=== PATIENT | female | born 1970 | race Caucasian/White ===

== ENCOUNTER 2022-04-09 17:16 | Inpatient (IN) ==
[2022-04-09] MEDS ORDERED: Ipratropium/Albuterol Neb 3 ML IH PRN (20:07)
[2022-04-09] MEDS ORDERED: methylPREDNISolone 125 MG/2 ML VIAL IVP ONE (20:07)
[2022-04-09] MEDS ORDERED: Iopamidol - 370 500 ML MLS IVP ONE (20:27)
[2022-04-09 20:48] LABS: Basophils # 0.1 K/mcL (0.0-0.2); Basophils % 0.6 %; Eosinophils % 0.2 %; Hematocrit 40.4 % (35.3-44.9); Immature Granulocytes % 0.4 % (0-4); Lymphocytes # 1.8 K/mcL (0.6-4.6); Lymphocytes % 18.6 %; Mean Corpuscular HGB Conc 32.2 g/dL (31.6-35.5); Mean Corpuscular Hemoglobin 31.4 pg (28.0-33.3); Mean Corpuscular Volume 97.6 fL (83.0-100.0); Mean Platelet Volume 10.3 fL (9.4-12.4); Monocytes # 0.8 K/mcL (0.0-1.3); Monocytes % 8.1 %; Neutrophils # 6.9 K/mcL (1.6-8.9); Nucleated Red Blood Cells 0.5 /100 WBC (0); Platelet Count 220 K/mcL (140-400); Red Blood Count 4.14 M/mcL (3.82-4.97); Red Cell Distribution Width 15.6 % (11.5-14.5); Segmented Neutrophils % 72.1 %; White Blood Count 9.6 K/mcL (4.3-11.1)
[2022-04-09 21:29] LABS: Calcium 9.2 mg/dL (8.6-10.3); Potassium 4.8 mEq/L (3.5-5.1); Troponin I 0.15 ng/mL (< 0.04)
[2022-04-09] MEDS ORDERED: Aspirin 325 MG TABLET PO ONE (21:49)
[2022-04-09] MEDS ORDERED: *HR* Heparin 5,000 UNIT/ML VIAL IVP ONE (21:49)
[2022-04-09] MEDS ORDERED: *HR* Heparin 5,000 UNIT/ML VIAL IVP PRN ×2 (21:49)
[2022-04-09 21:53] LABS: Influenza A PCR Negative (Negative); Influenza B PCR Negative (Negative); Resp. Syncytial Virus PCR Negative (Negative)
[2022-04-09 21:54] LABS: SARS-CoV-2 by PCR (In House) Negative (Negative)
[2022-04-09] MEDS: Heparin 25,000UNIT/250ML 1/2NS 25,000 UNIT/250 ML IV.SOLN IVC SCH (22:28)
[2022-04-09 22:38] LABS: Hematocrit 39.3 % (35.3-44.9); Hemoglobin 12.6 g/dL (11.5-15.4); Mean Corpuscular HGB Conc 32.1 g/dL (31.6-35.5); Mean Corpuscular Hemoglobin 31.3 pg (28.0-33.3); Mean Corpuscular Volume 97.5 fL (83.0-100.0); Mean Platelet Volume 10.3 fL (9.4-12.4); Platelet Count 216 K/mcL (140-400); Red Blood Count 4.03 M/mcL (3.82-4.97); Red Cell Distribution Width 15.6 % (11.5-14.5); White Blood Count 9.2 K/mcL (4.3-11.1)
[2022-04-09 22:45] LABS: Heparin anti-factor XA UFH < 0.04 IU/mL (0.30-0.70)
[2022-04-09 22:46] LABS: INR 1.5; Prothrombin Time 17.2 Seconds (9.4-12.1)
[2022-04-09 23:03] LABS: Magnesium 2.2 mg/dL (1.6-2.6)
[2022-04-09] MEDS ORDERED: Furosemide 20 MG/2 ML VIAL IVP ONE (23:16)
[2022-04-10] MEDS ORDERED: Melatonin 3 MG TABLET PO PRN (00:10)
[2022-04-10] MEDS ORDERED: Naloxone 0.4 MG/ML INJ IVP PRN (00:10)
[2022-04-10] MEDS ORDERED: Acetaminophen 325 MG TABLET PO PRN (00:10)
[2022-04-10] MEDS ORDERED: Ondansetron ODT 4 MG TAB.RAPDIS SL PRN (00:10)
[2022-04-10] MEDS: Levalbuterol Neb 1.25 MG/3 ML IH SCH ×5 (01:23→22:29)
[2022-04-10 01:49] LABS: Basophils # 0.1 K/mcL (0.0-0.2); Basophils % 0.8 %; Eosinophils % 0.4 %; Hematocrit 39.3 % (35.3-44.9); Hemoglobin 12.6 g/dL (11.5-15.4); Immature Granulocytes % 0.3 % (0-4); Lymphocytes # 2.4 K/mcL (0.6-4.6); Lymphocytes % 24.8 %; Mean Corpuscular HGB Conc 32.1 g/dL (31.6-35.5); Mean Corpuscular Hemoglobin 31.1 pg (28.0-33.3); Mean Platelet Volume 10.2 fL (9.4-12.4); Monocytes # 0.8 K/mcL (0.0-1.3); Monocytes % 8.2 %; Neutrophils # 6.3 K/mcL (1.6-8.9); Nucleated Red Blood Cells 0.5 /100 WBC (0); Platelet Count 227 K/mcL (140-400); Red Blood Count 4.05 M/mcL (3.82-4.97); Red Cell Distribution Width 15.7 % (11.5-14.5); Segmented Neutrophils % 65.5 %; White Blood Count 9.6 K/mcL (4.3-11.1)
[2022-04-10 02:13] LABS: Albumin 3.3 g/dL (3.5-5.7); Albumin/Globulin Ratio 1.4 (1.1-2.2); Bilirubin,Total 1.2 mg/dL (0.3-1.0); Calcium 8.9 mg/dL (8.6-10.3); Chol/HDL Ratio 4.2 (0-4.9); Globulin 2.4 g/dL (2.4-3.5); Phosphorous 3.5 mg/dL (2.7-4.5); Potassium 3.5 mEq/L (3.5-5.1); Total Protein 5.7 g/dL (6.4-8.9)
[2022-04-10] MEDS ORDERED: Furosemide 40 MG/4 ML VIAL IVP SCH (08:00)
[2022-04-10] MEDS ORDERED: Metoprolol XL (24 HR) Succ 25 MG TAB.ER.24H PO SCH (09:00)
[2022-04-10] MEDS: Aspirin 81 MG TAB.CHEW PO SCH (09:30)
[2022-04-10] MEDS ORDERED: Budesonide/Formoterol 160/4.5 1 PUFF INH IH SCH (10:00)
[2022-04-10] MEDS: Tiotropium 10 INH DOSE IH SCH (10:53)
[2022-04-10] MEDS: Furosemide 40 MG/4 ML VIAL IVP SCH ×2 (11:54→17:10)
[2022-04-10] MEDS ORDERED: carvediloL 6.25 MG TABLET PO SCH (17:00)
[2022-04-10] MEDS ORDERED: Aspirin 325 MG TABLET PO ONE (22:07)
[2022-04-10] MEDS: Nitroglycerin 0.4 MG TAB.SUBL SL PRN (22:15)
[2022-04-10] MEDS ORDERED: Morphine Sulfate 2 MG/ML SYRINGE IVP PRN (22:30)
[2022-04-10] MEDS ORDERED: 0.9 % Sodium Chloride 250 ML IVC ONE (22:35)
[2022-04-10] MEDS ORDERED: Albumin 25% 25gram/100mL 25 GM/100 ML IV.SOLN IVPB ONE (23:07)
[2022-04-10 23:16] LABS: Amphetamine Screen,Urine Positive ng/mL (Cutoff=1000); Barbiturate Screen,Urine Negative ng/mL (Cutoff=200); Benzodiazepines Screen,Urine Negative ng/mL (Cutoff=200); Cannabinoid Screen,Urine Negative ng/mL (Cutoff = 50); Cocaine Screen,Urine Negative ng/mL (Cutoff= 300); Opiate Screen,Urine Negative ng/mL (Cutoff=300); Phencyclidine Screen,Urine Negative ng/mL (Cutoff=25)
[2022-04-11] MEDS: Heparin 25,000UNIT/250ML 1/2NS 25,000 UNIT/250 ML IV.SOLN IVC SCH ×2 (03:24→08:13)
[2022-04-11 03:50] LABS: Calcium 8.5 mg/dL (8.6-10.3); Magnesium 1.8 mg/dL (1.6-2.6); Phosphorous 3.6 mg/dL (2.7-4.5); Potassium 3.2 mEq/L (3.5-5.1)
[2022-04-11 03:56] LABS: Troponin I 0.11 ng/mL (< 0.04)
[2022-04-11 04:02] LABS: Basophils # 0.1 K/mcL (0.0-0.2); Basophils % 0.9 %; Eosinophils # 0.2 K/mcL (0.0-0.6); Eosinophils % 2.5 %; Hematocrit 43.8 % (35.3-44.9); Hemoglobin 13.6 g/dL (11.5-15.4); Immature Granulocytes % 0.4 % (0-4); Lymphocytes # 1.8 K/mcL (0.6-4.6); Mean Corpuscular HGB Conc 31.1 g/dL (31.6-35.5); Mean Corpuscular Hemoglobin 30.2 pg (28.0-33.3); Mean Corpuscular Volume 97.3 fL (83.0-100.0); Mean Platelet Volume 10.3 fL (9.4-12.4); Monocytes # 0.8 K/mcL (0.0-1.3); Monocytes % 9.4 %; Neutrophils # 5.6 K/mcL (1.6-8.9); Platelet Count 251 K/mcL (140-400); Red Cell Distribution Width 15.3 % (11.5-14.5); Segmented Neutrophils % 65.8 %; White Blood Count 8.5 K/mcL (4.3-11.1)
[2022-04-11] MEDS: Levalbuterol Neb 1.25 MG/3 ML IH SCH ×4 (04:07→20:53)
[2022-04-11] MEDS: Spironolactone 12.5 MG TABLET PO SCH (08:01)
[2022-04-11] MEDS: Aspirin 81 MG TAB.CHEW PO SCH (08:01)
[2022-04-11] MEDS: Metoprolol XL (24 HR) Succ 25 MG TAB.ER.24H PO SCH (08:01)
[2022-04-11] MEDS ORDERED: ALPRAZolam 0.25 MG TABLET PO ONE (08:41)
[2022-04-11] MEDS ORDERED: 0.9 % Sodium Chloride 250 ML ONE ×2 (08:51→10:21)
[2022-04-11] MEDS: Tiotropium 10 INH DOSE IH SCH (10:16)
[2022-04-12] MEDS: Levalbuterol Neb 1.25 MG/3 ML IH SCH ×4 (04:06→23:01)
[2022-04-12] MEDS: Heparin 25,000UNIT/250ML 1/2NS 25,000 UNIT/250 ML IV.SOLN IVC SCH (07:01)
[2022-04-12] MEDS: Aspirin 81 MG TAB.CHEW PO SCH (07:44)
[2022-04-12] MEDS: Metoprolol XL (24 HR) Succ 25 MG TAB.ER.24H PO SCH ×2 (07:45→19:40)
[2022-04-12] MEDS: Spironolactone 12.5 MG TABLET PO SCH (07:46)
[2022-04-12] MEDS ORDERED: *HR* FentaNYL (PF) 100 MCG/2 ML VIAL ONE (09:07)
[2022-04-12] MEDS ORDERED: *HR* Midazolam HCl 2 MG/2 ML VIAL ONE (09:07)
[2022-04-12] MEDS ORDERED: 0.9 % Sodium Chloride 1,000 ML ONE (09:08)
[2022-04-12] MEDS ORDERED: Heparin 1,000 UNITS/500 mL 500 ML ONE (09:08)
[2022-04-12] MEDS ORDERED: Nitroglycerin 1,000 MCG/5 ML VIAL IV ONE (09:08)
[2022-04-12] MEDS ORDERED: Iopamidol - 370 200 ML INFUS..BTL ONE (09:08)
[2022-04-12] MEDS ORDERED: *HR* Heparin 10,000 UNIT/10 ML VIAL ONE (09:08)
[2022-04-12] MEDS: Tiotropium 10 INH DOSE IH SCH (10:43)
[2022-04-12] MEDS ORDERED: Metoprolol XL (24 HR) Succ 25 MG TAB.ER.24H PO ONE (11:06)
[2022-04-12 12:05] LABS: Calcium 8.8 mg/dL (8.6-10.3); Phosphorous 3.9 mg/dL (2.7-4.5)
[2022-04-12] MEDS: ALPRAZolam 0.25 MG TABLET PO PRN (14:06)
[2022-04-13] MEDS ORDERED: Pantoprazole 40 MG VIAL IVP ONE (00:01)
[2022-04-13] MEDS: Nitroglycerin 0.4 MG TAB.SUBL SL PRN (00:05)
[2022-04-13 00:08] VITALS: PULSE 110; TEMP 98
[2022-04-13 00:20] VITALS: BP 111/74
[2022-04-13] MEDS: ALPRAZolam 0.25 MG TABLET PO PRN (03:47)
[2022-04-13] MEDS: Levalbuterol Neb 1.25 MG/3 ML IH SCH ×2 (04:29→09:33)
[2022-04-13] MEDS: Tiotropium 10 INH DOSE IH SCH (09:35)
[2022-04-13 10:05] VITALS: O2SAT 96
[2022-04-13] MEDS: Metoprolol XL (24 HR) Succ 25 MG TAB.ER.24H PO SCH (10:06)
[2022-04-13] MEDS: Aspirin 81 MG TAB.CHEW PO SCH (10:06)
[2022-04-13] MEDS: Spironolactone 12.5 MG TABLET PO SCH (10:06)
== END 2022-04-13 11:10 | disposition home or self-care (01) | DRG 280 ==
LOC: EMEROOARM 17:16 → 3BNU 17:16 → SUATTDRO 04-10 09:11 → 3NENU 04-10 09:11
PROVIDERS: ADMIT Internal Medicine; ATTEND Internal Medicine